=== PATIENT | male | born 1940 | race American Indian/Alaskan Native ===

== ENCOUNTER 2016-12-07 07:49 | Day surgery (SDC) | payer MEDICARE, OTHER ==
[2016-11-30 10:00] VITALS: BMI 23.0
[2016-12-07 09:03] LABS: CALCIUM 8.8 mg/dl (8.6-10.4); POTASSIUM 4.4 mmol/L (3.6-5.2)
[2016-12-07] MEDS ORDERED: Sodium Chloride 0.9% 500 ML IV ONE (10:25)
[2016-12-07] MEDS ORDERED: ceFAZolin IV 1 gm in Dextrose 0 GM/0 ML BAG IVPB ONE (10:29)
[2016-12-07] MEDS ORDERED: HEPARIN-NS 5,000 UNITS/500 ML 5,000 UNIT/500 ML BAG IV ONE (10:30)
[2016-12-07] MEDS ORDERED: Lidocaine 1% Inj (20ml) ONE (10:30)
[2016-12-07] MEDS ORDERED: Propofol 10 mg/ml Inj (20 ML) ONE (10:35)
[2016-12-07] MEDS ORDERED: Midazolam 2 MG/2 ML VIAL ONE (10:35)
[2016-12-07] MEDS ORDERED: Lidocaine Hydrochloride 0 ML INJ ONE (10:39)
[2016-12-07] MEDS ORDERED: Bupivacaine HCl 0.5% PF (10 ml) Inj ONE (10:40)
[2016-12-07] MEDS ORDERED: Lidocaine 2% Inj (20ml) ONE (10:40)
[2016-12-07] MEDS ORDERED: ceFAZolin IV 2 gm in Dextrose 1 GM/50 ML BAG IVPB ONE (10:41)
--- NOTE | 2016-12-07 12:20 | PCM.SURG1 ---
Surgeon's Initial Post Op Note - Surgeon's Notes Surgeon: Dr Aguilar Sports Recruiter: Dr Pichardo PGY3, Silvino MS3 Type of Anesthesia: Local Pre-Operative Diagnosis: renal failure Operative Findings: see report Post-Operative Diagnosis: as above Operation Performed: left arm brachio-basilic fistula Specimen/Specimens Removed: none Estimated Blood Loss: EBL {In ML}: 100 Blood Products Given: N/A Drains Used: No Drains Post-Op Condition: Good Date of Surgery/Procedure: 12/07/16 Time of Surgery/Procedure: 12:20
[2016-12-07] MEDS ORDERED: Oxycodone/Acetaminophen 5/325 mg Tab PO PRN (12:21)
[2016-12-07] MEDS ORDERED: HYDROmorphone 0.5 mg/0.5 ml ISec IVP PRN (12:22)
[2016-12-07 13:27] VITALS: RESP 18; O2SAT 100
[2016-12-07 15:02] VITALS: BP 114/68; PULSE 74; TEMP 98.4
--- NOTE | 2016-12-08 05:23 | OP ---
PROCEDURE DATE: 12/07/2016 PREOPERATIVE DIAGNOSIS: Renal failure. POSTOPERATIVE DIAGNOSIS: Renal failure. PROCEDURE CARRIED OUT: Brachio-brachial fistula, left elbow. SURGEON: Dr. Aguilar. HAT MENDER: Dr. Pichardo, resident. ANESTHESIOLOGIST: Mr. Syd Siu. INDICATIONS: The patient is a elderly male with renal insufficiency, presently dialyzed by means of a catheter. OPERATIVE FINDINGS: There is no adequate cephalic vein and there is no adequate basilic vein in the arms to use for a fistula. However, there was a decent-sized brachial vein. Because of this, we carried out a brachio-brachial fistula. DESCRIPTION OF PROCEDURE: The patient was given local anesthesia, intravenous sedation, intravenous antibiotics. Using ultrasound, we have marked the vein and the artery on the skin. These were mobilized and a [id number] anastomosis was carried out using loop magnification and heparin anticoagulation, which was done reversing in the procedure. We then closed the wounds with Monocryl and nylon sutures to the skin. Blood loss was 100 mL. The operation carried out was brachio-brachial fistula, left elbow, most likely this will require mobilization in the future to a more accessible location. Yasir Aguilar Jr., MD cc: .
== END 2016-12-07 13:40 | disposition home or self-care (01) ==
LOC: C.SDS 07:49
PROVIDERS: ATTEND Surgery Vascular Surgery
DX: N18.6 End stage renal disease (principal)
CPT/HCPCS: 36415; 36819; 80048; J0690; J1644; J2250; J2704; J3010; J7040

== ENCOUNTER 2017-02-01 07:43 | Day surgery (SDC) | payer MEDICARE, OTHER ==
[2016-11-30 10:24] VITALS: BMI 22.4
[2017-02-01] MEDS ORDERED: Iodixanol 320 MG/ML 200 ML BOTTLE IV ONE (08:40)
[2017-02-01] MEDS ORDERED: HEPARIN-NS 5,000 UNITS/500 ML 0 UNIT/0 ML BAG IV ONE (08:40)
[2017-02-01] MEDS ORDERED: ceFAZolin IV 1 gm in Dextrose 1 GM/50 ML BAG IVPB ONE (08:41)
[2017-02-01] MEDS ORDERED: HEPARIN-NS 5,000 UNITS/500 ML 5,000 UNIT/500 ML BAG IV ONE (08:41)
[2017-02-01 08:47] LABS: POTASSIUM 4.7 mmol/L (3.6-5.2)
[2017-02-01 08:51] LABS: CALCIUM 7.9 mg/dl (8.6-10.4)
[2017-02-01] MEDS ORDERED: Propofol 10 mg/ml Inj (20 ML) ONE (08:56)
[2017-02-01] MEDS ORDERED: Midazolam 2 MG/2 ML VIAL ONE (08:56)
[2017-02-01] MEDS ORDERED: Sodium Chloride 0.9% 500 ML IV ONE (09:00)
[2017-02-01] MEDS ORDERED: Papaverine Hydrochloride 30 mg/ml (2ml) ONE (09:25)
[2017-02-01] MEDS ORDERED: Sodium Chloride 0.9% 1,000 ML IV ONE (11:42)
--- NOTE | 2017-02-01 11:45 | PCM.SURG1 ---
Surgeon's Initial Post Op Note - Surgeon's Notes Surgeon: [employer] Director: 0 Type of Anesthesia: General Endo Anesthesia Administered By: nan Pre-Operative Diagnosis: renal failure, immature fistula left arm Operative Findings: diminshed pulse. poor opacification of brachial brachial anstomosis. good flow via new hybrid shunt Post-Operative Diagnosis: same Operation Performed: revision of avf left / placement of hybrid shunt left Specimen/Specimens Removed: 0 Estimated Blood Loss: EBL {In ML}: 200 Blood Products Given: N/A Drains Used: No Drains Post-Op Condition: Good Date of Surgery/Procedure: 02/01/17 Time of Surgery/Procedure: 11:45
[2017-02-01] MEDS ORDERED: HYDROmorphone 0.5 mg/0.5 ml ISec IVP PRN (11:49)
[2017-02-01 12:58] VITALS: BP 132/78; PULSE 58; RESP 18; TEMP 98; O2SAT 98
--- NOTE | 2017-02-02 08:09 | OP ---
PROCEDURE DATE: 02/01/2017 PREOPERATIVE DIAGNOSIS: Renal fistula, immature fistula, left arm. PROCEDURE: Revision of arteriovenous fistula and creation of hybrid shunt, left arm. SURGEON: Yasir Aguilar Jr., MD. FASHION INTERN: None. ANESTHESIA ADMINISTERED BY: Timothy Glasgow. TYPE OF ANESTHESIA: Local sedation. DESCRIPTION OF PROCEDURE: The patient is an elderly man on dialysis by means of a catheter. He previously had a brachio-brachial fistula created at the elbow. However, on evaluation, he was found to have a perianastomotic stenosis. Two angiograms were taken compressed above and below, did not adequately demonstrate the arterial anastomosis in such a way that I felt this. Because of this, we ligated above and below the previous anastomosis of the brachial vein and then carried out a fresh anastomosis from the brachial artery to the axillary vein. The axillary vein was done using a hybrid 8 mm diameter arterial site, 5 cm length hybrid shunt. This worked quite well. At the end of the procedure, it was difficult to feel the pulse at the wrist, but we had excellent perfusion by means of a pulse oximeter and good Doppler signals and we had great flow through the fistula. Blood loss for the procedure was 100-200 mL. The operation carried out was revision of AV fistula, left arm and then creation of new hybrid shunt left arm, brachiobasilic. Yasir Aguilar Jr., MD
--- NOTE | 2017-02-02 13:09 | RAD ---
PROCEDURE: Intraoperative Fluoroscopy. HISTORY: RENAL FAILURE FINDINGS: Fluoroscopic assistance was provided for hybrid graft in the left
== END 2017-02-01 13:01 | disposition home or self-care (01) ==
LOC: C.SDS 07:43
PROVIDERS: ATTEND Surgery Vascular Surgery
DX: N18.6 End stage renal disease (principal)
CPT/HCPCS: 36415; 36832; 80048; C1768; C1769; C1894; J0690; J1170; J1644; J2250; J2704; J3010; J7030; J7040; Q9966

== ENCOUNTER 2018-07-26 09:29 | Outpatient (CLI) | payer MEDICARE, OTHER | END 2018-07-26 09:30 | disposition home or self-care (01) | LOC: C.RADH 09:29 ==